=== PATIENT | male | born 1985 | race Caucasian/White ===

== ENCOUNTER 2018-03-12 05:56 | Emergency (ER) | payer OTHER ==
[~2018-03-12] VITALS: Ht 180.3 cm; Wt 77.1 kg
[2018-03-12] MEDS ORDERED: BACTRIM DS TAB1 EACH PO (06:46)
[2018-03-12 07:11] VITALS: BP 116/77
== END 2018-03-12 07:16 | disposition home or self-care (01) ==
LOC: ER 05:56
DX: L02.413 Cutaneous abscess of right upper limb (principal); F17.210 Nicotine dependence, cigarettes, uncomplicated; Z90.49 Acquired absence of other specified parts of digestive tract; Z90.89 Acquired absence of other organs; Z88.8 Allergy status to other drugs, medicaments and biological substances